=== PATIENT | male | born 2000 | race American Indian/Alaskan Native ===

== ENCOUNTER 2020-10-16 15:09 | Emergency (ER) | payer SELFPAY ==
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
== END 2020-10-16 18:03 | disposition home or self-care (01) ==
LOC: ED 15:09
CPT/HCPCS: 99282